=== PATIENT | male | born 1965 | race Hispanic/Latino ===

== ENCOUNTER 2020-03-17 10:50 | Inpatient (IN) | payer OTHER ==
[2020-03-13 16:27] LABS: BASOPHILS # (AUTO) 0.1 (0.0-0.1); BASOPHILS % 0.6 % (0.0-1.0); EOSINOPHILS # (AUTO) 0.1 (0.0-0.4); EOSINOPHILS % 1.2 % (0.0-6.0); HEMATOCRIT 43.6 % (38.2-49.6); HEMOGLOBIN 14.4 g/dL (14.0-18.0); LYMPHOCYTES % 25.9 % (18.0-39.1); MEAN CORPUSCULAR HEMOGLOBIN 30.1 pg (28-32); MEAN CORPUSCULAR VOLUME 91.2 fL (81-99); MONOCYTES # (AUTO) 1.2 (0.2-0.8); MONOCYTES % 9.9 % (4.4-11.3); NEUTROPHILS # (AUTO) 7.3 (2.1-6.9); NEUTROPHILS % 62.1 % (38.7-80.0); PLATELET COUNT 248 x10e3/uL (140-360); RED BLOOD COUNT 4.78 x10e6/uL (4.3-5.7); RED CELL DISTRIBUTION WIDTH 14.5 % (11.7-14.4)
[2020-03-13 16:48] LABS: ALANINE AMINOTRANSFERASE 33 IU/L (0-55); ALBUMIN 3.9 g/dL (3.5-5.0); ALBUMIN/GLOBULIN RATIO 1.1 (0.8-2.0); ALKALINE PHOSPHATASE 82 IU/L (40-150); BLOOD UREA NITROGEN 17 mg/dL (7-26); BUN/CREATININE RATIO 20 (6-25); CARBON DIOXIDE 24 mmol/L (22-29); CHLORIDE 106 mmol/L (98-107); CREATININE, SERUM 0.83 mg/dL (0.72-1.25); EST GLOMERULAR FILTRATION RATE > 60 ML/MIN (60-); GLUCOSE 63 mg/dL (74-118); SODIUM 143 mmol/L (136-145)
[~2020-03-17 10:50] MED LIST: ASPIR 8181 MG PO; CARVEDILOL3.125 MG PO; FISH OIL 1,0001 EAC2 PO; HYDROCHLOROTHIA25 MG PO; LISINOPRIL10 MG PO; PRAVACHOL20 MG PO; VITAMIN B122500 MCG PO; VITAMIN D3250 MCG PO
[2020-03-17] MEDS ORDERED: CEFAZOLIN SOD 1 GM/NS 50ML 50 ML IV ONE (11:19)
[2020-03-17] MEDS ORDERED: LABETALOL HCL 20 ML ONE (12:27)
[2020-03-17] MEDS ORDERED: IOPAMIDOL 300MG/ML 50ML INFUS..BTL IV ONE (13:10)
[2020-03-17] MEDS ORDERED: ROCURONIUM BROMIDE 10 MG/ML 5ML VIAL IV ONE (14:51)
[2020-03-17] MEDS ORDERED: NEOSTIGMINE 1 MG/ML 10ML VIAL ONE (14:51)
[2020-03-17] MEDS ORDERED: ONDANSETRON HCL INJ 2MG/ML 2ML 2 MG/ML VIAL ONE (14:51)
[2020-03-17] MEDS ORDERED: LIDOCAINE HCL 2% JELLY 5 ML TUBE ONE (14:51)
[2020-03-17] MEDS ORDERED: SEVOFLURANE INHAL SOLN 250 ML PEN BTL ONE (14:51)
[2020-03-17] MEDS ORDERED: GLYCOPYRROLATE INJ 0.2 MG/ML VIAL ONE (14:51)
[2020-03-17] MEDS ORDERED: DEXAMETHASONE SOD PHOS INJ 4 MG/ML VIAL ONE (14:51)
[2020-03-17] MEDS ORDERED: PROPOFOL IV EMULSION 10 MG/ML 20 ML VIAL ONE (14:51)
[2020-03-17] MEDS ORDERED: LIDOCAINE HCL 2% LOCAL INJ 5 ML SDV VIAL INJ ONE (14:51)
[2020-03-17] MEDS ORDERED: MICROFIBRILLER COLLAGEN HEMOSTAT 1 GM POWDER TP ONE (14:52)
[2020-03-17] MEDS ORDERED: MANNITOL 25% 12.5GM/50ML 50 ML ONE (14:52)
[2020-03-17] MEDS ORDERED: MIDAZOLAM HCL 2 MG/2 ML VIAL ONE (15:12)
[2020-03-17] MEDS ORDERED: FENTANYL CITRATE/PF 100MCG/2 ML INJ ONE (15:12)
[2020-03-17] MEDS ORDERED: DIPHENHYDRAMINE HCL INJ 50 MG/ML VIAL IM PRN (17:00)
[2020-03-17] MEDS ORDERED: ACETAMINOPHEN 1000 MG/100 ML IV PRN (17:00)
[2020-03-17] MEDS ORDERED: METOCLOPRAMIDE HCL 10 MG/2ML VIAL IV PRN (17:00)
[2020-03-17] MEDS ORDERED: NALOXONE HCL INJ 0.4 MG/ML AMP IV PRN (17:00)
[2020-03-17] MEDS ORDERED: HYDROMORPHONE 2MG/ML 2 MG/ML ML ONE (17:19)
[2020-03-17] MEDS ORDERED: MEPERIDINE HCL INJ 25 MG/ML VIAL ONE (17:40)
--- NOTE | 2020-03-17 18:15 | Diagnostic Imaging Report ---
Examination: Single AP view of the chest. COMPARISON: None. INDICATION: Rule out pneumothorax IMPRESSION: 1. Lines and Tubes: None 2. Exam is limited by soft tissue attenuation from patient's body habitus. Lungs are hypoinflated. No definite pneumothorax is identified, within the limitations of the study. No consolidation. 3. Prominent cardiac silhouette, which is partly due to low lung volumes. Central pulmonary vascular crowding. 4. No acute bony abnormalities. Signed by: Dr. Rogelio Belcher M.D. on 03/17/2020 6:12 PM
[2020-03-17] MEDS: ONDANSETRON HCL INJ 2MG/ML 2ML 2 MG/ML VIAL IV PRN ×2 (18:51→23:55)
[2020-03-17] MEDS: MORPHINE SULFATE 1 MG/ML 30ML PCA IV PRN (18:51)
[2020-03-17 19:22] LABS: BASOPHILS % 0.2 % (0.0-1.0); HEMATOCRIT 44.3 % (38.2-49.6); HEMOGLOBIN 14.2 g/dL (14.0-18.0); LYMPHOCYTES # (AUTO) 1.3 (1.0-3.2); LYMPHOCYTES % 6.6 % (18.0-39.1); MEAN CORPUSCULAR HGB CONC 32.1 g/dL (31-35); MEAN CORPUSCULAR VOLUME 93.5 fL (81-99); MONOCYTES # (AUTO) 1.1 (0.2-0.8); MONOCYTES % 5.2 % (4.4-11.3); NEUTROPHILS # (AUTO) 17.7 (2.1-6.9); NEUTROPHILS % 87.6 % (38.7-80.0); PLATELET COUNT 238 x10e3/uL (140-360); RED BLOOD COUNT 4.74 x10e6/uL (4.3-5.7); RED CELL DISTRIBUTION WIDTH 14.3 % (11.7-14.4)
[2020-03-17 19:39] LABS: ANION GAP 15.8 mmol/L (8-16); BLOOD UREA NITROGEN 12 mg/dL (7-26); BUN/CREATININE RATIO 10 (6-25); CALCIUM 8.9 mg/dL (8.4-10.2); CARBON DIOXIDE 25 mmol/L (22-29); CHLORIDE 103 mmol/L (98-107); CREATININE, SERUM 1.17 mg/dL (0.72-1.25); EST GLOMERULAR FILTRATION RATE > 60 ML/MIN (60-); GLUCOSE 151 mg/dL (74-118); POTASSIUM 4.8 mmol/L (3.5-5.1); SODIUM 139 mmol/L (136-145)
[2020-03-17 20:00] VITALS: BP 129/93
--- NOTE | 2020-03-17 20:00 | NUR ---
Received pt to unit s/p PACU. Pt a/o x3 Pain managed via Morphine WEIGH BOX TENDER, present at bedside. Dressing to L side of chest CDI. KEILY bulb noted with dark red fluid, muñoz to dd with jesús clear urine noted. IVF infusing no diff. Able to make needs known, Bed in low position, will obtain call light and room phone for room. No s/sx of acute distress noted at this time
[2020-03-17 21:00] VITALS: BP 161/103
[2020-03-17] MEDS ORDERED: D5.45%NS/KCL 20MEQ 1,000 ML IV SCH (21:00)
[2020-03-17] MEDS: DOCUSATE SODIUM 100 MG CAP PO SCH (21:00)
[2020-03-17 21:27] VITALS: BP 129/93
[2020-03-17 22:00] VITALS: BP 144/94
[2020-03-17] MEDS: CEFAZOLIN SOD 1 GM/NS 50ML 50 ML IV SCH (22:00)
--- NOTE | 2020-03-17 23:14 | NUR ---
Call placed to Dr. Andrade for consult @ [phone] @ [phone]. Also placed call to Dr. Marie @ [phone] @ [phone] spoke with Johanny
[2020-03-17 23:34] VITALS: BP 144/94
--- NOTE | 2020-03-17 23:54 | NUR ---
Call placed to Dr. Andrade regarding High Blood pressure. Orders to d/c IVF noted
[2020-03-18] VITALS (12 sets, daily range): BP systolic 114–155; BP diastolic 76–139
[2020-03-18] MEDS ORDERED: ACETAMINOPHEN 1000 MG/100 ML IV PRN
[2020-03-18] MEDS ORDERED: ONDANSETRON HCL INJ 2MG/ML 2ML 2 MG/ML VIAL IV PRN
[2020-03-18] MEDS ORDERED: HYDRALAZINE HCL 20 MG/ML VIAL IV PRN
[2020-03-18] MEDS: METOPROLOL TARTRATE INJ 1 MG/ML VIAL IV SCH ×6 (02:49→22:00)
[2020-03-18 05:01] LABS: BASOPHILS % 0.2 % (0.0-1.0); HEMATOCRIT 41.1 % (38.2-49.6); HEMOGLOBIN 13.9 g/dL (14.0-18.0); LYMPHOCYTES # (AUTO) 0.9 (1.0-3.2); LYMPHOCYTES % 5.5 % (18.0-39.1); MEAN CORPUSCULAR HEMOGLOBIN 30.9 pg (28-32); MEAN CORPUSCULAR HGB CONC 33.8 g/dL (31-35); MEAN CORPUSCULAR VOLUME 91.3 fL (81-99); MONOCYTES # (AUTO) 1.5 (0.2-0.8); MONOCYTES % 9.8 % (4.4-11.3); NEUTROPHILS # (AUTO) 13.2 (2.1-6.9); PLATELET COUNT 241 x10e3/uL (140-360); RED CELL DISTRIBUTION WIDTH 14.4 % (11.7-14.4)
[2020-03-18 05:17] LABS: ANION GAP 14.3 mmol/L (8-16); BLOOD UREA NITROGEN 12 mg/dL (7-26); BUN/CREATININE RATIO 11 (6-25); CALCIUM 8.6 mg/dL (8.4-10.2); CARBON DIOXIDE 23 mmol/L (22-29); CHLORIDE 104 mmol/L (98-107); CREATININE, SERUM 1.07 mg/dL (0.72-1.25); EST GLOMERULAR FILTRATION RATE > 60 ML/MIN (60-); GLUCOSE 126 mg/dL (74-118); POTASSIUM 4.3 mmol/L (3.5-5.1); SODIUM 137 mmol/L (136-145)
[2020-03-18] MEDS: CEFAZOLIN SOD 1 GM/NS 50ML 50 ML IV SCH ×3 (06:00→22:00)
[2020-03-18] MEDS: MORPHINE SULFATE 1 MG/ML 30ML PCA IV PRN (06:11)
[2020-03-18] MEDS: SODIUM CHLORIDE 0.45% 1,000 ML IV SCH ×3 (08:12→19:45)
[2020-03-18] MEDS: DOCUSATE SODIUM 100 MG CAP PO SCH ×2 (09:00→17:00)
--- NOTE | 2020-03-18 09:40 | Diagnostic Imaging Report ---
EXAMINATION: CHEST SINGLE (PORTABLE) INDICATION: Chest tube COMPARISON: Chest radiograph 03/17/2020 FINDINGS: LINES/TUBES:Left chest tube in unchanged position. EKG leads overlie the chest. LUNGS:Low lung volumes. Mild left basilar patchy opacities. PLEURA:No pleural effusion or pneumothorax. MEDIASTINUM:The cardiomediastinal silhouette appears unchanged in size and shape. BONES/SOFT TISSUES:No acute osseous injury. ABDOMEN:No free air under the diaphragm. IMPRESSION: No pneumothorax. Left chest tube remains in place. Mild left basilar patchy opacities, most likely subsegmental atelectasis. Signed by: Shade Crook MD on 03/18/2020 9:37 AM
--- NOTE | 2020-03-18 12:54 | History and Physical ---
CHIEF COMPLAINT: The patient is status post left partial nephrectomy and hypertensive urgency. HISTORY OF PRESENT ILLNESS: The patient is 55 years male with left renal mass. The patient at baseline with hypertension and dyslipidemia. The patient is otherwise stable. He is status post left partial nephrectomy. The patient also has left chest tube placement. The patient is otherwise stable. He is doing better. The patient was hypertensive overnight. IV Lopressor and hydralazine initiated. 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 He is comfortable at this time. The patient was supposed to be in the ICU, but there was no ICU bed. Therefore, the patient is in IMCU with ICU nursing ratio. The patient is otherwise stable at this time. PAST MEDICAL HISTORY: Hypertension, dyslipidemia, coronary artery disease, hiatal hernia, left adrenal nodule, and left upper pole renal lesion. SOCIAL HISTORY: The patient does not smoke or use alcohol. No regular drugs. ALLERGIES: NO KNOWN ALLERGIES. HOME MEDICATIONS: 1. Aspirin. 2. Coreg. 3. Vitamin . 4. HCTZ. 5. Lisinopril. 6. [place]-3 fatty acids. 7. Pravastatin. REVIEW OF SYSTEMS: His pain is much better controlled. No shortness of breath. No lower extremity swelling or pain. No calf pain. The patient had abdominal pain consistent with post left partial nephrectomy. PHYSICAL EXAMINATION: VITAL SIGNS: Temperature is 98, blood pressure was 161/103 with heart rate of 101, now down to 131/95, heart rate of 96, and respirations 20. HEENT: Normocephalic and atraumatic. Anicteric. NECK: Supple grossly. PULMONARY: Diminished breath sounds, but without any wheezing. Left chest tube is in place. CARDIOVASCULAR: Tachycardia, improved with Lopressor IV. ABDOMEN: Status post left nephrectomy. Drain in place. EXTREMITIES: No cyanosis or edema. NEUROLOGIC: No gross focal deficit. LABORATORY DATA: WBC is 20, hemoglobin 14.2, hematocrit 44.3, and platelets 238. Chemistry; sodium is 143, potassium 4, chloride 106, bicarb 24, BUN 17, creatinine 0.8, and glucose is 151. IMPRESSION: 1. Status post left partial nephrectomy. 2. Left chest tubes. 3. Baseline hypertension. 4. Dyslipidemia. PLAN: Continue with postop care. The patient is on IV fluid half-normal saline for now. Renal function is stable. Continue with incentive spirometry. Physical therapy. N.p.o. until and subsequent no nausea or vomiting. Continue with Lopressor IV. Hydralazine IV as needed. We will follow up on the patient's status. Repeated lab work in the morning. MD SANJANA Brown/BERRY /[id number]
--- NOTE | 2020-03-18 14:24 | Consultation ---
DATE OF CONSULTATION: Pulmonary Consultation The patient of Dr. Adams, Dr. Nuñez, and Dr. Andrade. HISTORY OF PRESENT ILLNESS: Charming, but unfortunate 55-year-old gentleman, history of hematuria, underwent a left partial nephrectomy and adrenalectomy for presumed renal cell carcinoma on March 17. He has a history of hypertension. He denies coronary artery disease, history of hyperlipidemia, hiatal hernia, or BPH. ALLERGIES: NO KNOWN ALLERGIES MEDICATIONS: According to record, his medications include aspirin, Coreg, hydrochlorothiazide, lisinopril, Pravachol, and vitamin D. 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 He has had previous back surgery. Nonsmoker. Drinks 6-pack a week of beer. FAMILY HISTORY: Positive for renal cell carcinoma, brother and cancer of the prostate. PHYSICAL EXAMINATION: GENERAL: He is a burly white male, in no acute distress. He admits to snoring, but not apnea or daytime hypersomnolence. VITAL SIGNS: Blood pressure 135/95, temperature 98.6, pulse 107, and respirations 22. HEAD: Normocephalic and atraumatic. EYES: Extraocular movements intact. LUNGS: Diminished breath sounds, but clear. HEART: Regular rhythm. ABDOMEN: Left flank wound with KEILY drain. Putnam catheter. EXTREMITIES: Nonedematous. NEUROLOGIC: The patient appears stable postoperatively. There is some dizziness, presumably related to morphine MUSIC PROMOTER. He was warned not to stand up abruptly. PLAN: Physical therapy. Incentive spirometry. We will resume Coreg and Pravachol. Resume lisinopril and hydrochlorothiazide when blood pressure rises. Thank you for this kind referral. Anuel Marie MD DS/MODL /[id number]
[2020-03-18] MEDS ORDERED: CARVEDILOL 3.125 MG TAB PO SCH (17:00)
[2020-03-18] MEDS: PRAVASTATIN 20 MG TAB PO SCH (20:46)
[2020-03-19] VITALS (9 sets, daily range): BP systolic 106–127; BP diastolic 69–87
[2020-03-19] MEDS: METOPROLOL TARTRATE INJ 1 MG/ML VIAL IV SCH ×6 (02:00→21:26)
[2020-03-19 05:04] LABS: BASOPHILS % 0.2 % (0.0-1.0); HEMATOCRIT 38.6 % (38.2-49.6); HEMOGLOBIN 12.8 g/dL (14.0-18.0); LYMPHOCYTES # (AUTO) 1.2 (1.0-3.2); LYMPHOCYTES % 7.5 % (18.0-39.1); MEAN CORPUSCULAR HEMOGLOBIN 30.7 pg (28-32); MEAN CORPUSCULAR HGB CONC 33.2 g/dL (31-35); MEAN CORPUSCULAR VOLUME 92.6 fL (81-99); MONOCYTES # (AUTO) 1.7 (0.2-0.8); MONOCYTES % 10.6 % (4.4-11.3); NEUTROPHILS # (AUTO) 13.2 (2.1-6.9); NEUTROPHILS % 81.1 % (38.7-80.0); PLATELET COUNT 203 x10e3/uL (140-360); RED BLOOD COUNT 4.17 x10e6/uL (4.3-5.7); RED CELL DISTRIBUTION WIDTH 14.3 % (11.7-14.4)
[2020-03-19 05:33] LABS: ANION GAP 15.7 mmol/L (8-16); BLOOD UREA NITROGEN 12 mg/dL (7-26); BUN/CREATININE RATIO 13 (6-25); CALCIUM 8.2 mg/dL (8.4-10.2); CARBON DIOXIDE 22 mmol/L (22-29); CHLORIDE 102 mmol/L (98-107); CREATININE, SERUM 0.92 mg/dL (0.72-1.25); EST GLOMERULAR FILTRATION RATE > 60 ML/MIN (60-); GLUCOSE 94 mg/dL (74-118); POTASSIUM 3.7 mmol/L (3.5-5.1); SODIUM 136 mmol/L (136-145)
[2020-03-19] MEDS: CEFAZOLIN SOD 1 GM/NS 50ML 50 ML IV SCH ×3 (06:00→21:26)
[2020-03-19] MEDS: SODIUM CHLORIDE 0.45% 1,000 ML IV SCH ×3 (08:08→23:18)
[2020-03-19] MEDS: DOCUSATE SODIUM 100 MG CAP PO SCH ×2 (08:08→15:55)
--- NOTE | 2020-03-19 09:08 | Diagnostic Imaging Report ---
TECHNIQUE: Frontal view of the chest. INDICATION: ^DAILY WHILE CHEST TUBE IN PLACE ^[id number] ^50 ^DAILY WHILE CHEST TUBE IN PLACE COMPARISON: Prior day. IMPRESSION: Lines and hardware: Stable. Heart and mediastinum: Stable. Lungs and pleura: Stable minimal retrocardiac patchy airspace opacity; may represent pneumonitis versus atelectasis. No pleural effusion. No pneumothorax. Soft tissues and bones: No acute abnormality. Signed by: Deondre Roth MD on 03/19/2020 9:05 AM
--- NOTE | 2020-03-19 10:28 | Diagnostic Imaging Report ---
TECHNIQUE: 2 frontal images of the abdomen. HISTORY: ^constipation. COMPARISON: None. IMPRESSION: Nonobstructive radiographic bowel gas pattern. Unremarkable stool burden. No acute bony abnormality. No free air within the imaged abdomen. Catheter and surgical clips project over the left upper quadrant. Signed by: Deondre Roth MD on 03/19/2020 10:25 AM
[2020-03-19] MEDS ORDERED: BISACODYL 10 MG SUPP PR ONE (12:45)
--- NOTE | 2020-03-19 12:55 | NUR ---
chest tube removed by Dr. Marie at bedside, vasoline gauze applied and covered with dry dressing, Nixon dressing changed at this time, patient tolerated well. at bedside and will continue to monitor.
[2020-03-19] MEDS ORDERED: MORPHINE SULFATE 1 MG/ML 30ML PCA IV PRN (13:45)
--- NOTE | 2020-03-19 14:15 | Diagnostic Imaging Report ---
TECHNIQUE: Frontal view of the chest. INDICATION: ^chest tube d/maria teresa ^[id number] ^1345 COMPARISON: Prior day. IMPRESSION: Lines and hardware: None. Heart and mediastinum: Stable. Lungs and pleura: Low lung volumes. Minimal left basilar patchy airspace opacity/atelectasis. No focal airspace consolidation. No pleural effusion. No pneumothorax. Soft tissues and bones: No acute abnormality. Signed by: Deondre Roth MD on 03/19/2020 2:12 PM
--- NOTE | 2020-03-19 16:17 | NUR ---
attempted to tx pt but the HR was quickly rising, sitting at eob 125 bpm/ elevated as high as 131bpm defer until tomorrow Addendum: 03/19/20 at 1619 by Fabian Khan PTA Amended: Links added.
[2020-03-19] MEDS: PRAVASTATIN 20 MG TAB PO SCH (21:18)
--- NOTE | 2020-03-19 23:00 | NUR ---
Report given to KIT Rodarte on Med surg 1. Pt placed on telemetry and transferred to room 109 via bed. All belongings transferred with pt. Pt states he will tell his .
--- NOTE | 2020-03-19 23:47 | NUR ---
Received patient from [facility]. Alert and oriented. Both IV infiltrated. New IV inserted to left hand 20 G. Patent, flushed with no problems. Patient is on ROUTER OPERATOR PIN pump. KEILY drain to left noted, dressing to left side dry and intact. Call light within reached. Bed alarm on.
[2020-03-20] VITALS (7 sets, daily range): BP systolic 110–128; BP diastolic 69–84
[2020-03-20] MEDS: METOPROLOL TARTRATE INJ 1 MG/ML VIAL IV SCH ×3 (01:38→08:42)
[2020-03-20 05:45] LABS: BASOPHILS # (AUTO) 0.1 (0.0-0.1); BASOPHILS % 0.3 % (0.0-1.0); EOSINOPHILS % 0.2 % (0.0-6.0); HEMATOCRIT 36.1 % (38.2-49.6); HEMOGLOBIN 11.8 g/dL (14.0-18.0); LYMPHOCYTES # (AUTO) 1.9 (1.0-3.2); LYMPHOCYTES % 11.5 % (18.0-39.1); MEAN CORPUSCULAR HGB CONC 32.7 g/dL (31-35); MEAN CORPUSCULAR VOLUME 91.9 fL (81-99); MONOCYTES # (AUTO) 1.6 (0.2-0.8); MONOCYTES % 9.5 % (4.4-11.3); NEUTROPHILS % 77.7 % (38.7-80.0); PLATELET COUNT 211 x10e3/uL (140-360); RED BLOOD COUNT 3.93 x10e6/uL (4.3-5.7); RED CELL DISTRIBUTION WIDTH 13.6 % (11.7-14.4)
[2020-03-20 05:54] LABS: ANION GAP 13.5 mmol/L (8-16); BLOOD UREA NITROGEN 12 mg/dL (7-26); BUN/CREATININE RATIO 14 (6-25); CALCIUM 7.9 mg/dL (8.4-10.2); CARBON DIOXIDE 23 mmol/L (22-29); CHLORIDE 101 mmol/L (98-107); CREATININE, SERUM 0.83 mg/dL (0.72-1.25); EST GLOMERULAR FILTRATION RATE > 60 ML/MIN (60-); GLUCOSE 91 mg/dL (74-118); POTASSIUM 3.5 mmol/L (3.5-5.1); SODIUM 134 mmol/L (136-145)
[2020-03-20] MEDS: CEFAZOLIN SOD 1 GM/NS 50ML 50 ML IV SCH (05:56)
--- NOTE | 2020-03-20 07:40 | NUR ---
PT ABLE TO MAKE NEEDS KNOWN RESP EVEN AND UNLABORED AT THIS TIME , NO DISTRESS NOTED, CALL LIGHT IN REACH.
[2020-03-20 07:56] LABS: BAND NEUTROPHILS % (MANUAL) 1 %; LYMPHOCYTES % (MANUAL) 9 % (19-48); MONOCYTES % (MANUAL) 9 % (3.4-9.0); NEUTROPHILS % (MANUAL) 80 % (40-74); PLATELET ESTIMATE ADEQUATE; PLATELET MORPHOLOGY COMMENT NORMAL; RBC MORPHOLOGY COMMENT NORMAL
--- NOTE | 2020-03-20 08:00 | NUR ---
PT AYALA REMOVED, PT TOLERATED WELL.
--- NOTE | 2020-03-20 08:10 | NUR ---
PT WALKED WITH PT, TOLERATED WELL.
[2020-03-20] MEDS: ACETAMINOPHEN/CODEINE 300MG - 30MG TAB PO PRN ×4 (08:41→21:18)
[2020-03-20] MEDS: DOCUSATE SODIUM 100 MG CAP PO SCH ×2 (08:42→17:04)
[2020-03-20] MEDS ORDERED: POTASSIUM CHLORIDE 10MEQ EA PO ONE (09:30)
[2020-03-20] MEDS: CARVEDILOL 3.125 MG TAB PO SCH ×2 (10:15→17:04)
[2020-03-20] MEDS: CEFTRIAXONE SOD 1 GM/NS 50 ML 50 ML IV SCH (10:15)
[2020-03-20] MEDS: VANCOMYCIN 1GM/NS 250 ML 250 ML IV SCH (10:16)
[2020-03-20] MEDS: LISINOPRIL 10 MG TAB PO SCH ×2 (10:17→17:04)
--- NOTE | 2020-03-20 10:20 | NUR ---
pt urinated and had BM at this time.
--- NOTE | 2020-03-20 11:32 | Diagnostic Imaging Report ---
EXAMINATION: CHEST SINGLE (PORTABLE) INDICATION: Chest tube removal COMPARISON: Chest radiograph 03/19/2020 FINDINGS: LINES/TUBES:Chest tube has been removed. EKG leads overlie the chest. LUNGS:The lungs are well-inflated. No focal consolidation or pulmonary edema. PLEURA:No pleural effusion or pneumothorax. MEDIASTINUM:The cardiomediastinal silhouette appears normal in size and shape. BONES/SOFT TISSUES:No acute osseous injury. ABDOMEN:No free air under the diaphragm. IMPRESSION: No pneumothorax status post chest tube removal. Signed by: Shade Crook MD on 03/20/2020 11:29 AM
--- NOTE | 2020-03-20 19:30 | NUR ---
BEDSIDE SHIFT REPORT RECEIVED FROM DAY RN. PT IS ALERT AND ORIENTED X3. RESPIRATIONS ARE EVEN AND UNLABORED. ENCOURAGING PT TO USE IS Q 2HRS. LEFT ABDOMEN DRESSING IS DRY AND ITACT. KEILY DRAIN CHARGED. PT VOIDING WITHOUT DIFFICULTY. 20 G PIV IN LEFT HAND- SITE HEALTHY. OUTPUT SEROUS- SANGUINOUS DRAINAGE. CALL LIGHT WITHIN REACH. BED LOCKED AND BED IN LOW POSITION.
--- NOTE | 2020-03-20 19:47 | NUR ---
report given to coming nurse, walking rounds complete
[2020-03-20] MEDS: PRAVASTATIN 20 MG TAB PO SCH (22:25)
[2020-03-21] VITALS (7 sets, daily range): BP systolic 105–128; BP diastolic 71–83
[2020-03-21] MEDS: ACETAMINOPHEN/CODEINE 300MG - 30MG TAB PO PRN ×6 (01:58→23:25)
[2020-03-21 06:09] LABS: BASOPHILS % 0.3 % (0.0-1.0); EOSINOPHILS # (AUTO) 0.3 (0.0-0.4); EOSINOPHILS % 2.1 % (0.0-6.0); HEMATOCRIT 33.9 % (38.2-49.6); HEMOGLOBIN 11.4 g/dL (14.0-18.0); LYMPHOCYTES # (AUTO) 1.4 (1.0-3.2); LYMPHOCYTES % 10.2 % (18.0-39.1); MEAN CORPUSCULAR HEMOGLOBIN 31.8 pg (28-32); MEAN CORPUSCULAR HGB CONC 33.6 g/dL (31-35); MEAN CORPUSCULAR VOLUME 94.4 fL (81-99); MONOCYTES # (AUTO) 1.3 (0.2-0.8); MONOCYTES % 9.1 % (4.4-11.3); NEUTROPHILS % 77.8 % (38.7-80.0); PLATELET COUNT 211 x10e3/uL (140-360); RED BLOOD COUNT 3.59 x10e6/uL (4.3-5.7); RED CELL DISTRIBUTION WIDTH 13.5 % (11.7-14.4)
[2020-03-21 06:34] LABS: ANION GAP 8.9 mmol/L (8-16); BLOOD UREA NITROGEN 14 mg/dL (7-26); BUN/CREATININE RATIO 17 (6-25); CALCIUM 8.4 mg/dL (8.4-10.2); CARBON DIOXIDE 30 mmol/L (22-29); CHLORIDE 99 mmol/L (98-107); CREATININE, SERUM 0.84 mg/dL (0.72-1.25); EST GLOMERULAR FILTRATION RATE > 60 ML/MIN (60-); GLUCOSE 91 mg/dL (74-118); POTASSIUM 3.9 mmol/L (3.5-5.1); SODIUM 134 mmol/L (136-145)
--- NOTE | 2020-03-21 08:43 | Diagnostic Imaging Report ---
EXAMINATION: CHEST SINGLE (PORTABLE) INDICATION: Chest tube removal COMPARISON: Chest radiograph 03/19/2020 FINDINGS: LINES/TUBES: EKG leads overlie the chest. LUNGS:The lungs are well-inflated. No focal consolidation or pulmonary edema. PLEURA:No pleural effusion or pneumothorax. MEDIASTINUM:The cardiomediastinal silhouette appears normal in size and shape. BONES/SOFT TISSUES:No acute osseous injury. ABDOMEN:No free air under the diaphragm. IMPRESSION: No pneumothorax status post chest tube removal. Signed by: Shade Crook MD on 03/21/2020 8:40 AM
[2020-03-21] MEDS: LISINOPRIL 10 MG TAB PO SCH ×2 (10:21→18:15)
[2020-03-21] MEDS: CARVEDILOL 3.125 MG TAB PO SCH ×2 (10:21→18:14)
[2020-03-21] MEDS: CEFTRIAXONE SOD 1 GM/NS 50 ML 50 ML IV SCH (10:22)
[2020-03-21] MEDS: DOCUSATE SODIUM 100 MG CAP PO SCH ×2 (10:22→18:24)
[2020-03-21] MEDS: VANCOMYCIN 1GM/NS 250 ML 250 ML IV SCH (11:23)
[2020-03-21] MEDS: PRAVASTATIN 20 MG TAB PO SCH (21:24)
[2020-03-22 00:26] VITALS: BP 112/79
[2020-03-22] MEDS: ACETAMINOPHEN/CODEINE 300MG - 30MG TAB PO PRN ×3 (03:49→13:05)
[2020-03-22 04:00] VITALS: BP 112/82
[2020-03-22 05:35] LABS: BASOPHILS % 0.2 % (0.0-1.0); EOSINOPHILS # (AUTO) 0.4 (0.0-0.4); EOSINOPHILS % 3.5 % (0.0-6.0); HEMOGLOBIN 11.2 g/dL (14.0-18.0); LYMPHOCYTES # (AUTO) 1.7 (1.0-3.2); MEAN CORPUSCULAR HEMOGLOBIN 31.3 pg (28-32); MEAN CORPUSCULAR HGB CONC 32.9 g/dL (31-35); MONOCYTES # (AUTO) 1.2 (0.2-0.8); MONOCYTES % 10.2 % (4.4-11.3); NEUTROPHILS # (AUTO) 8.7 (2.1-6.9); NEUTROPHILS % 71.7 % (38.7-80.0); PLATELET COUNT 232 x10e3/uL (140-360); RED BLOOD COUNT 3.58 x10e6/uL (4.3-5.7); RED CELL DISTRIBUTION WIDTH 13.3 % (11.7-14.4)
--- NOTE | 2020-03-22 07:25 | NUR ---
REPORT GIVEN TO DAYSHIFT NURSE. RESTING IN BED. AAOX3. NO SIGNS OF IV INFILTRATION. BED LOCKED AND IN LOW POSITION. CALL LIGHT WITHIN REACH.
[2020-03-22 09:05] VITALS: BP 133/90
[2020-03-22] MEDS: DOCUSATE SODIUM 100 MG CAP PO SCH ×2 (09:14→17:41)
[2020-03-22] MEDS: CARVEDILOL 3.125 MG TAB PO SCH ×2 (09:15→17:10)
[2020-03-22] MEDS: CEFTRIAXONE SOD 1 GM/NS 50 ML 50 ML IV SCH (09:15)
[2020-03-22] MEDS: LISINOPRIL 10 MG TAB PO SCH ×2 (09:15→17:11)
[2020-03-22 09:38] VITALS: BP 138/90
[2020-03-22] MEDS: VANCOMYCIN 1GM/NS 250 ML 250 ML IV SCH (10:00)
[2020-03-22 12:13] VITALS: BP 105/77
--- NOTE | 2020-03-22 12:46 | NUR ---
Nutrition Screen Note RD Recommendation for Physician: Continue diet as ordered Plan of Care: RD following monitoring for tolerance and adequacy Nutrition reason for involvement: LOS Primary Diagnose(s): left kidney tumor PMH: HTN, dyslipidemia, CAD, hiatal hernia, left adrenal nodule, left upper pole renal lession Ht:65.5 in Wt:235 lbs BMI:38.5kg/m2 IBW:144.[address] Assessment: Initial encounter with patient. Pt denies any nausea, vomiting. Pt states he has had some loose stools. Pt denies any difficulty chewing or swallowing at this time. Pt has had a decreased appetite since admit. Pt denies any significant wt changes and pt is able to feed himself. Current Diet: Regular Malnutrition Evaluation (03/22/2020) The patient does not meet criteria for a specified degree of malnutrition at this time. Will re-evaluate at follow-up as appropriate. Diet Education Needs Assessment: Diet education not indicated at this time. Diet tolerance: Tolerating Po diet well Nutrition Care Level: karl Linares RD, LD, CNSC
[2020-03-22 16:00] VITALS: BP 108/76
--- NOTE | 2020-03-22 17:05 | NUR ---
LEFT ANTERIOR ABDOMINAL KEILY DRAIN TUBE SUTURES AND TUBE REMOVED, ALL SUTURE MATERIAL REMOVED PER ORDER, DRY 4x4 AND TAPE USED TO COVER REMOVAL SITE.
[2020-03-22] MEDS ORDERED: TYLENOL WITH C1 EACH PO (17:56)
[2020-03-22] MEDS ORDERED: COLACE100 MG PO (17:58)
--- NOTE | 2020-04-22 02:42 | Operative Report ---
DATE OF PROCEDURE: 03/17/2020 SURGEON: Luis Adams MD PREOPERATIVE DIAGNOSES: 1. Microhematuria. 2. Left adrenal mass. 3. Left renal mass consistent with cancer. OPERATIONS PERFORMED: 1. Cystourethroscopy with bilateral ureteral catheterization and retrograde ureteropyelography (separate procedure performed for the microhematuria). 2. Interpretation of retrograde ureteropyelography, no radiologist present. 3. Supervision of fluoroscopy, no radiologist present. 4. Left partial nephrectomy (separate procedure performed for renal tumor). 5. Left adrenalectomy (separate procedure performed for adrenal mass). BREEDER SERVICE TECHNICIAN: Zulay Adams MD ANESTHESIA: General. COMPLICATIONS: None. CLINICAL SUMMARY: Jamie Landis is a 55-year-old man with the above preoperative diagnoses. He is brought for the above procedures. He is aware of the risks of bleeding, infection, injury to adjacent structures, incomplete cancer resection and he elected to proceed. OPERATIVE PROCEDURE IN DETAIL: Informed consent was verified. Jamie Landis was properly identified and taken to the operating room, placed on the cystoscopy table in supine position. Anesthesia was uneventfully begun. The patient was then carefully and gently repositioned in the dorsal lithotomy position with all pressure points well padded. His genitalia were prepared and draped in the usual sterile fashion. The cystoscope sheath with the visual obturator in place was atraumatically inserted in the patient's urethra, it was guided down to the relatively unremarkable urethra, through the normal sphincteric region, through the prostate bed, which was significant for trilobar prostatic hypertrophy with median lobe. We entered the patient's bladder. A panendoscopy revealed trabeculations, but there were no tumors, no suspicious lesions. The ureteral catheter was used to cannulate each ureter and retrograde ureteral pyelograms were performed. Interpretation of retrograde ureteropyelography contrast was instilled in retrograde fashion bilaterally. On the right side, there were no tumors, no stones, no diverticula. Unobstructed drainage was observed. The left hand side exhibited ptosis of the kidney to the mass effect with the mass pushing the kidney inferiorly. Unobstructed drainage was observed fluoroscopically bilaterally. Putnam catheter was then placed. The patient was then uneventfully transported to the open operating room, where he was repositioned on the operating table, carefully and gently in a flank position with all pressure points carefully well padded. His abdomen, chest, and back were prepared and draped in usual sterile fashion. A flank incision was made, carried through all layers of the abdominal and chest wall. An extraperitoneal extrapleural approach was utilized. A 12th rib incision was utilized. We isolated the entire kidney and the adrenal. This was an upper pole tumor and that there was normal spleen and renal mass. We carefully dissected out the adrenal mass and excised it separately. Hemoclips were utilized for hemostasis. We controlled the renal artery and then we proceeded with performing a partial nephrectomy. We handed the specimen off for histopathological analysis and re-evaluation for negative margins and we then utilized 3-0 chromic suture to oversew bleeders and collecting system and utilized Avitene and Surgicel and also 2-0 chromic suture, capsular sutures in order to approximate the defect and obtain excellent hemostasis. Copious irrigation was performed. We verified hemostasis. The pathologist told us that our margins were negative. A Vladimir drain was placed through a separate stab incision and secured to the skin with a nylon suture. The incision was approximated in layers utilizing heavy Vicryl suture in interrupted [id number] fashion. Skin was approximated with skin ori. Sterile dressings were applied. The patient was uneventfully reversed from anesthesia and taken to recovery room in stable condition. There were no complications to the procedure. He tolerated the procedure well. Estimated blood loss was 250 mL. Explicit postoperative instructions were left on the chart. We will follow the patient during his hospital course and of course, eagerly await the histopathology report. Ongoing urological followup is a must. In the future, we will evaluate the patient's voiding in an objective fashion on a long-term basis. Luis Adams MD OH/MODL /[id number]
== END 2020-03-22 18:35 | disposition home or self-care (01) | DRG 658 ==
LOC: OR 10:50 → IMCU 20:06 → MED/SURG 03-19 23:00
PROVIDERS: ADMIT Internal Medicine; ATTEND Internal Medicine
PROC: 0T788ZZ Dilation of Bilateral Ureters, Via Natural or Artificial Opening Endoscopic (ICD-10-PCS; 2020-03-17)
PROC: BT141ZZ Fluoroscopy of Kidneys, Ureters and Bladder using Low Osmolar Contrast (ICD-10-PCS; 2020-03-17)
PROC: 0TT10ZZ Resection of Left Kidney, Open Approach (ICD-10-PCS; principal; 2020-03-17 13:00)
PROC: 0GB20ZZ Excision of Left Adrenal Gland, Open Approach (ICD-10-PCS; 2020-03-17 13:00)
DX: C64.2 Malignant neoplasm of left kidney, except renal pelvis (principal); I25.10 Atherosclerotic heart disease of native coronary artery without angina pectoris; E78.5 Hyperlipidemia, unspecified; Z11.59 Encounter for screening for other viral diseases; R31.29 Other microscopic hematuria; F10.10 Alcohol abuse, uncomplicated; Z80.51 Family history of malignant neoplasm of kidney; Z80.42 Family history of malignant neoplasm of prostate; I11.0 Hypertensive heart disease with heart failure; I50.9 Heart failure, unspecified; E78.00 Pure hypercholesterolemia, unspecified
CPT/HCPCS: 36415; 71045; 74018; 74420; 80048; 80053; 82948; 83735; 85025; 86850; 86900; 86920; 88309; 88329; 93005; 97139; 99251; C1758; J0690; J0696; J1100; J2001; J2150; J2175; J2250; J2270; J2405; J2710; J2765; J3010; J3370; U0002

== ENCOUNTER → 2021-01-14 | Outpatient (CLI) | payer OTHER ==
[~2021-01-14] MED LIST changes: +COLACE100 MG PO; +TYLENOL WITH C1 EACH PO
== END ==
LOC: US 07:32
PROVIDERS: ATTEND Urology
DX: D44.10 Neoplasm of uncertain behavior of unspecified adrenal gland (principal); C64.2 Malignant neoplasm of left kidney, except renal pelvis
CPT/HCPCS: 71046; 76770

== ENCOUNTER → 2021-12-09 | Outpatient (CLI) | payer OTHER | LOC: US 14:32 | PROVIDERS: ATTEND Urology | DX: C64.2 Malignant neoplasm of left kidney, except renal pelvis (principal) | CPT/HCPCS: 71046; 74018; 76770 ==